=== PATIENT | female | born 1960 | race Caucasian/White ===

== ENCOUNTER 2020-07-04 07:55 | Outpatient (REF) | payer OTHER, SELFPAY ==
--- NOTE | ~2020-07-04 | MM_ITS ---
EXAMINATION: MM SCREENING DIGITAL BREAST TOMOSYNTHESIS, BILATERAL CLINICAL INFORMATION: Screening. Asymptomatic. The lifetime risk of breast cancer based on the Tyrer-Cuzick Model is 16%. COMPARISON: Mammography: 02/14/2019, 12/13/2017 05/29/2015 TECHNIQUE: Digital breast tomosynthesis is performed in both the craniocaudal and mediolateral oblique views along with computer-aided detection (CAD). Synthesized 2D images are generated from the tomosynthesis. FINDINGS: The breasts are heterogeneously dense, which may obscure small masses (ACR BI-RADS breast composition Category c). There are no significant masses, abnormal calcifications, or other abnormalities. The axillary and skin contours are unremarkable. MM/MM tomosynthesis screening BI IMPRESSION: No mammographic evidence of malignancy. ASSESSMENT: BI-RADS 1: Negative RECOMMENDATION: Routine annual mammography screening. This patient's information was entered into a reminder system with a target due date for their next mammogram.
== END 2020-07-04 07:56 | disposition home or self-care (01) ==
LOC: HO.MAMMO 07:55
PROVIDERS: PCP Internal Medicine; Visit Provider Internal Medicine
DX: Z12.31 Encounter for screening mammogram for malignant neoplasm of breast (principal)
CPT/HCPCS: 77063; 77067

== ENCOUNTER 2021-08-15 08:45 | Outpatient (REF) | payer OTHER, SELFPAY ==
--- NOTE | ~2021-08-15 | MM_ITS ---
EXAMINATION: MM SCREENING DIGITAL BREAST TOMOSYNTHESIS, BILATERAL CLINICAL INFORMATION: Screening. Asymptomatic. The lifetime risk of breast cancer based on the Tyrer-Cuzick Model is 13%. COMPARISON: Mammography: 07/04/2020, 02/14/2019, 12/13/2017, 05/29/2015 TECHNIQUE: Digital breast tomosynthesis is performed in both the craniocaudal and mediolateral oblique views along with computer-aided detection (CAD). Synthesized 2D images are generated from the tomosynthesis. FINDINGS: The breasts are heterogeneously dense, which may obscure small masses (ACR BI-RADS breast composition Category c). There are no significant masses, abnormal calcifications, or other abnormalities. Breast tissue composition borders on average fibroglandular. Parenchymal pattern is similar to prior studies and there is no developing density. No interval architectural abnormality. No significant change. MM/MM tomosynthesis screening BI IMPRESSION: No mammographic evidence of malignancy. ASSESSMENT: BI-RADS 2: Benign RECOMMENDATION: Routine annual mammography screening. This patient's information was entered into a reminder system with a target due date for their next mammogram.
== END 2021-08-15 08:46 | disposition home or self-care (01) ==
LOC: HO.MAMMO 08:45
PROVIDERS: PCP Internal Medicine; Visit Provider Internal Medicine
DX: Z12.31 Encounter for screening mammogram for malignant neoplasm of breast (principal)
CPT/HCPCS: 77063; 77067

== ENCOUNTER 2023-01-15 07:14 | Outpatient (REF) | payer OTHER, SELFPAY | END 2023-01-15 07:15 | disposition home or self-care (01) | LOC: HO.MAMMO 07:14 | PROVIDERS: PCP Internal Medicine; Visit Provider Internal Medicine | DX: Z12.31 Encounter for screening mammogram for malignant neoplasm of breast (principal) | CPT/HCPCS: 77063; 77067 ==

== ENCOUNTER → 2023-01-15 07:30 | Outpatient (BNV) | payer OTHER, SELFPAY | PROVIDERS: PCP Internal Medicine; Visit Provider Radiology Diagnostic Radiology | DX: Z12.31 Encounter for screening mammogram for malignant neoplasm of breast (principal) | CPT/HCPCS: 77063; 77067 ==

== ENCOUNTER 2024-04-06 08:56 | Outpatient (REF) | payer OTHER, SELFPAY ==
--- NOTE | ~2024-04-06 | MM_ITS ---
EXAMINATION: MM SCREENING DIGITAL BREAST TOMOSYNTHESIS, BILATERAL CLINICAL INFORMATION: Screening. Asymptomatic. COMPARISON: Mammography: Comparison is made with available priors TECHNIQUE: Digital breast mammography with tomosynthesis is performed in both the craniocaudal and mediolateral oblique views along with computer-aided detection (CAD). FINDINGS: The breasts are heterogeneously dense, which may obscure small masses (ACR BI-RADS breast composition Category c). There are no significant masses, abnormal calcifications, or other abnormalities. MM/MM tomosynthesis screening BI IMPRESSION: No mammographic evidence of malignancy. ASSESSMENT: BI-RADS BI-RADS 1 - Negative RECOMMENDATION: Routine annual mammography screening. 1 year F/U This examination should not preclude the clinical evaluation of a suspicious palpable abnormality. This patient's information was entered into a reminder system with a target due date for their next mammogram. Electronically signed by: Martha Guo DO 04/17/2024 09:11 AM DUYEN
== END 2024-04-06 08:57 | disposition home or self-care (01) ==
LOC: HO.MAMMO 08:56
PROVIDERS: PCP Internal Medicine; Visit Provider Internal Medicine
DX: Z12.31 Encounter for screening mammogram for malignant neoplasm of breast (principal)
CPT/HCPCS: 77063; 77067

== ENCOUNTER → 2024-04-06 09:00 | Outpatient (BNV) | payer OTHER, SELFPAY | PROVIDERS: PCP Internal Medicine; Visit Provider Internal Medicine | DX: Z12.31 Encounter for screening mammogram for malignant neoplasm of breast (principal) | CPT/HCPCS: 77063; 77067 ==

== ENCOUNTER 2025-04-19 08:19 | Outpatient (REF) | payer OTHER, SELFPAY ==
--- NOTE | ~2025-04-19 | MM_ITS ---
EXAMINATION: MM SCREENING DIGITAL BREAST TOMOSYNTHESIS, BILATERAL CLINICAL INFORMATION: Screening. Asymptomatic. COMPARISON: Mammography: Comparison is made with available priors TECHNIQUE: Digital breast mammography with tomosynthesis is performed in both the craniocaudal and mediolateral oblique views along with computer-aided detection (CAD). FINDINGS: The breasts are heterogeneously dense, which may obscure small masses. There are no significant masses, abnormal calcifications, or other abnormalities. MM/MM tomosynthesis screening BI IMPRESSION: No mammographic evidence of malignancy. ASSESSMENT: BI-RADS Category 1: Negative RECOMMENDATION: Routine annual mammography screening. 1 year F/U This examination should not preclude the clinical evaluation of a suspicious palpable abnormality. This patient's information was entered into a reminder system with a target due date for their next mammogram. Electronically signed by: Martha Guo DO 04/20/2025 06:03 PM DUYEN
--- OUTSIDE RECORDS SUMMARY | 2025-04-19 08:39 | XMS_ITS | Clinical Summary ---
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 21 tablet 01/18/2025 Active omeprazole (PriLOSEC) [address] capsule TAKE ONE CAPSULE BY MOUTH EVERY DAY. DO NOT CRUSH, CHEW, OR SPLIT 90 capsule 1 02/07/2025 Active simvastatin (ZOCOR) 40 mg tablet TAKE ONE TABLET BY MOUTH ONCE DAILY AT BEDTIME 90 tablet 1 02/07/2025 Active hydrOXYzine HCL (ATARAX) 25 mg tablet TAKE ONE TABLET BY MOUTH EVERY 8 HOURS NEEDED FOR ANXIETY 90 tablet 1 02/15/2025 Active Active Problems Problem Noted Date Diagnosed Date Prediabetes 06/02/2023 Anxiety 10/14/2017 Depression 10/14/2017 Hyperlipidemia 10/14/2017 Subclinical hypothyroidism 10/14/2017 Hyperplastic colon polyp 03/26/2011 Encounters Date Type Department Care Team Description 01/18/2025 11:15 AM EDT Office Visit Internal Medicine - [address] [address] Edson Wagner MD Sciatica of right side (Primary Dx) from Last 3 Months Immunizations Immunization Administration Dates Next Due Influenza trivalent, 0.5mL, preservative free (Fluarix; FluLaval; Fluzone) ages 6mo and older (Afluria) 3 years and older 03/13/2013,02/16/2011 Influenza trivalent, with pr eservative (Fluzone; Afluria) 6mo and older 02/19/2012 Moderna SARS-CoV-2 COVID-19, mRNA, LNP-S, preservative free 07/18/2020 Pneumococcal conjugate 20 va lent (Prevnar 20, PCV 20) 2mo and older 01/02/2025 Tdap Tetanus diptheria acell ular pertussis (Boostrix; Adacel) 7yo and older 09/09/2022 Zoster recombinant (Shingrix) 19yo and older ,03/31/2020 Surgical History Surgery Date Site/Laterality Comments CHOLECYSTECTOMY PROCEDURE: HISTORICAL CHOLECYSTECTOMY APPENDECTOMY PROCEDURE: HISTORICAL APPENDECTOMY Medical History Medical History Date Comments Anxiety 10/14/2017 DX:Anxiety Depression 10/14/2017 DX:Depression Hyperlipidemia 10/14/2017 DX:Hyperlipidemi a Hyperplastic colon polyp 03/26/2011 DX:Hype rplastic colon polyp Subclinical hypothyroidism 10/14/2017 DX:Rick bclinical hypothyroidism Family History Medical History Relation Name Comments Diabetes Brother hypercholestero lemia Coronary artery disease Father Heart attack Maternal Grandfather Ovarian cancer Maternal Grandmother Dementia Mother Hyperlipidemia Mother Heart attack Paternal Grandfather Stroke Paternal Grandmother Hyperlipidemia Sister Relation Name Status Comments Brother Alive Father Maternal Grandfather Maternal Grandmother Mother Alive Paternal Grandfather Paternal Grandmother Sister Alive Social History Tobacco Use Types Packs/Day Years Used Date Smoking Tobacco: Former Cigarettes 0.3 8 0 05/17/1977 - 05/17/1985 Smokeless Tobacco: Never Tobacco Cessation:Counseling Given: Not Answered Alcohol Use Standard Drinks/Week Comments Yes 2 (1 standard drink = 0.6 oz pur e alcohol) Housing Instability Answer Date Recorde d Are you worried that in the next 2 months you may not have stable housing? No 01/01/2025 Food Access & Nutrition Answer Date Rec orded Do you have access to a vari ety of food including fruits and vegetables? Yes 01/01/2025 Access to Healthcare Answer Date Record ed Within the last 3 months, ho w many times did you visit the emergency department for your medical care? 0 01/01/2025 Health Literacy Answer Date Recorded How often do you need to hav e someone help you when you read instructions, pamphlets, or other written material from your doctor or pharmacy? Never 01/01/2025 Caregiver: How often do you need to have someone help you when you read instructions, pamphlets, or other written material from your doctor or pharmacy? Not on file 01/01/2025 Financial Risk Answer Date Recorded How hard is it for you to pa y for the very basics like food, housing, medical care, and air conditioning / heating? Not very hard 01/01/2025 Transportation Answer Date Recorded Has the lack of transportati on kept you from meetings, work, or from getting things needed for daily living? No Has the lack of transportati on kept you from medical appointments or from getting medications? No 01/01/2025 Social Isolation Answer Date Recorded How often do you feel lonely or isolated from th ose around you? Never 01/01/2025 Food Risk Answer Date Recorded Within the past 12 months we worried whether our food would run out before we got money to buy more. Never true 01/01/2025 Within the past 12 months th e food we bought just didn't last and we didn't have money to get more. Never true 01/01/2025 Dependent Care Answer Date Recorded Do you need help finding or paying for care for your loved ones. For example, exceptional children teacher or elderly care for an older adult? Patient declined 01/01/2025 Education Answer Date Recorded Do you think completing more education or training, like finishing a GED, going to college, or learning a trade, would be helpful for you? N/A 01/01/2025 Employment and Income Answer Date Recor ded During the last four weeks, have you been actively looking for work? No 01/01/2025 Living Situation Answer Date Recorded What is your living situation? Unrecognized valu e 01/01/2025 Comments No Sex and Gender Information Value Date Recorded Sex Assigned at Not on file Legal Sex Female 2:21 AM EST Gender Identity Not on file Sexual Orientation Not on file Obstetrics History Last Filed Vital Signs Vital Sign Reading Time Taken Comments Blood Pressure 141/72 01/18/2025 10:59 AM EDT Pulse 93 01/18/2025 10:59 AM EDT Temperature - - Respiratory Rate - - Oxygen Saturation - - Inhaled Oxygen Concentration - - Weight 86.2 kg (190 lb 1.6 oz) 01/18/2025 10:59 AM EDT Height 172.7 cm (5' 8 ) 01/18/2025 10:59 AM EDT Body Mass Index 28.9 01/18/2025 10:59 AM EDT Plan of Treatment Upcoming Encounters Date Type Department Care Team (Late st Contact Info) Description 07/05/2025 9:30 AM EST Office Visit Internal Medicine - [address] [phone] Edson Wagner MD [address] [place] [id number] 01/04/2026 8:00 AM EDT Office Visit Internal Medicine - [address] [place] [phone] Edson Wagner MD [address] [place] [address] Health Maintenance Due Date Last Done Comments Colorectal Cancer Screening: Colonoscopy 12/09/2021 12/09/2016 HIV Screening 04/25/2022 Cervical Cancer Screening: Pap Smear 05/09/2024 05/09/2021 COVID-19 Vaccine ( season) 2025 05/03/2021, 07/18/2020, 06/25/2020 Influenza Vaccine (#1) 2025 , 02/14/2019, 04/28/2014, Additional history exists Social Influencers of Health Screening 01/01/2026 01/01/2025 Breast Cancer Screening 04/17/2026 04/17/2024 Cholesterol Screening (Lipid Panel) 12/28/2028 12/29/2023, 12/29/2023 DTaP,Tdap,and Td Vaccines (2 - Td or Tdap) 09/09/2032 09/09/2022 RSV Immunization Adult Patients (1 - 1-dose 75+ series) 2036 Zoster Vaccines Completed 08/10/2020, 03/31/2020 Hepatitis C Screening Completed 12/19/2020 Depression Screening Completed 01/01/2025 Pneumococcal Vaccine: 50+ Years Completed 01/02/2025, 04/28/2014 HIB Vaccines Aged Out No longer eligi ble based on patient's age to complete this topic HPV Vaccines Aged Out No longer eligi ble based on patient's age to complete this topic Hepatitis A Vaccines Aged Out No long er eligible based on patient's age to complete this topic Hepatitis B Vaccines Aged Out No long er eligible based on patient's age to complete this topic IPV Vaccines Aged Out No longer eligi ble based on patient's age to complete this topic MMR Vaccines Aged Out No longer eligi ble based on patient's age to complete this topic Meningococcal ACWY Vaccine Aged Out N o longer eligible based on patient's age to complete this topic Meningococcal B Vaccine Aged Out No l onger eligible based on patient's age to complete this topic RSV Immunization Patients Under 20 months Aged Out No longer eligible based on patient's age to complete this topic Varicella Vaccines Aged Out No longer eligible based on patient's age to complete this topic Procedures Procedure Name Priority Date/Time Associated Diagnosis Comments EXTERNAL MAMMOGRAM REPORT 04/17/2024 LIPID PANEL Routine 12/29/2023 PAP SMEAR Routine 05/09/2021 HEPATITIS C SCREENING Routine 12/19/2020 COLONOSCOPY Routine 12/09/2016 from Last 3 Months or Most Recently Relevant to Health Maintenance Results * External Mammogram Report (04/17/2024) Anatomical Region Laterality Modality [facility] Final Result * Lipid panel (12/29/2023) LDL/HDL Ratio 3 Triglycerides 145 mg/dL Cholesterol 189 mg/dL HDL 60 mg/dL LDL Cholesterol 100 mg/dL Blood Venous blood specimen / Unknown [facility] Provider LAB BLOOD ORDERABLES Arabella l Result * Pap Smear (05/09/2021) Pathologist [facility] Pap smear no interpretation , abstracted [facility] Provider HEALTH MAINTENANCE Final Result * Hepatitis C Screening (12/19/2020) Pathologist [facility] Hepatitis C Screening negative [facility] Provider HEALTH MAINTENANCE Final Result * Colonoscopy (12/09/2016) Pathologist [facility] Colonoscopy completed Anatomical Region Laterality Modality Other [facility] Provider HEALTH MAINTENANCE Final Result from Last 3 Months or Most Recently Relevant to Health Maintenance Insurance [employer] [id number] Care Teams Dairy Cattle Farmer Relationship Specialty Start Date End Date Edson Wagner MD [address] [place] [id number] PCP - General Internal Medicine 03/14/21
--- OUTSIDE RECORDS SUMMARY | 2025-04-19 08:39 | XMS_ITS | Clinical Summary ---
Author Organization [facility] Address [address] [place] [id number] Phone Care Team Providers Care Equipment Superintendent Name Role Phone Sylvie Walters MD Primary Care Provider [phone] Allergies No known active allergies Medications simvastatin (ZOCOR) 20 MG tablet 10/19/2018 Active citalopram (CELEXA) 20 MG tablet 10/17/2018 Active Family History Medical History Relation Comments Diabetes type II Brother Obesity Brother Colon polyps Father Coronary artery disease Father bypass s urgery and of post op intestinal complications 2012 age 85 Hyperlipidemia Father Ovarian cancer Maternal Grandmother Arthritis Mother Dementia Mother Hypertension Mother Breast cancer Paternal Aunt Stroke Paternal Grandmother No Known Problems Sister Retinoblastoma Son as child - bilat . Did well. Relation Status Comments Brother Alive Father Maternal Grandfather Maternal Grandmother Mother Alive Paternal Aunt Paternal Grandfather Paternal Grandmother Sister Alive Son Alive Social History Tobacco Use Types Packs/Day Years Used Date Smoking Tobacco: Former Cigarettes Smokeless Tobacco: Never Alcohol Use Standard Drinks/Week Comments Yes 6 (1 standard drink = 0.6 oz pur e alcohol) weekly Education Answer Date Recorded Are you interested in more education? Not on lavon e 09/10/2022 Are you concerned about learning? Not on file 09/10/2022 No 09/10/2022 No 09/10/2022 Digital Access Answer Date Recorded No 10/12/2022 No 10/12/2022 No 10/12/2022 Reliable internet access at home? Not on file 10/12/2022 Device with a working camera? 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 Not on file Not on file Last Filed Vital Signs Vital Sign Reading Time Taken Comments Blood Pressure 116/80 11/09/2018 8:31 AM EDT Pulse - - Temperature - - Respiratory Rate - - Oxygen Saturation - - Inhaled Oxygen Concentration - - Weight 84.4 kg (186 lb) 11/09/2018 8:31 AM EDT Height 172.7 cm (5' 8 ) 11/09/2018 8:31 AM EDT Body Mass Index 28.28 11/09/2018 8:31 AM EDT Plan of Treatment Health Maintenance Due Date Last Done Comments Adult Td,Tdap Booster 1961 LIPID PANEL 1961 DEPRESSION SCREENING 1973 SMOKING Hx and SMOKELESS TOBACCO SCREENING 1974 HEPATITIS C SCREENING 09/21/1979 HIV ONE-TIME SCREENING (18-6 5 YEARS) 09/21/1979 MAMMOGRAM 2001 COLOGUARD 2006 COLONOSCOPY 2006 COLORECTAL CANCER SCREENING 2006 FIT TEST 2006 FOBT 2006 SIGMOIDOSCOPY 2006 VIRTUAL COLONOSCOPY 2006 PNEUMOCOCCAL VACCINES (50+ years) (2 of 2 - PCV) 04/28/2015 04/28/2014 PAP SMEAR 02/01/2020 01/31/2015, 01/31/2015 INFLUENZA VACCINE (#1) 2024 04/28/2014 COVID-19 VACCINE (2 - 2024-2 6 season) 2025 06/25/2020 RSV VACCINE (1 - 1-dose 75+ series) 2036 ZOSTER VACCINES Completed 08/10/2020, 03/31/2020 HEPATITIS A VACCINES Aged Out No long er eligible based on patient's age to complete this topic HIB VACCINES Aged Out No longer eligi ble based on patient's age to complete this topic MENINGOCOCCAL VACCINES (ACWY) Aged Out No longer eligible based on patient's age to complete this topic MENINGOCOCCAL VACCINES (B) Aged Out N o longer eligible based on patient's age to complete this topic Medical Devices Not on file Procedures Procedure Name Priority Date/Time Associated Diagnosis Comments PAP SMEAR FOR RESULT ENTRY ONLY Routine 01/31/2015 from Last 3 Months or Most Recently Relevant to Health Maintenance Results * PAP SMEAR FOR RESULT ENTRY ONLY (01/31/2015) HM Pap smear NIL HR HPV negative Historical Provider MD HEALTH MAINTENANCE Final Result from Last 3 Months or Most Recently Relevant to Health Maintenance Insurance [place] [address] [place] [id number] POS [employer] POS O POS O POS O POS O POS O POS O POS Care Teams Equipment Superintendent Relationship Specialty Start Date End Date Sylvie Walters MD [address] [place] [address] PCP - General 09/08/18 Additional Source Comments The information contained in this document represents components of the legal health record. It is not the complete legal health record.[facility]
== END 2025-04-19 08:20 | disposition home or self-care (01) ==
LOC: HO.MAMMO 08:19
PROVIDERS: PCP Internal Medicine; Visit Provider Internal Medicine
DX: Z12.31 Encounter for screening mammogram for malignant neoplasm of breast (principal)
CPT/HCPCS: 77063; 77067

== ENCOUNTER → 2025-04-19 08:30 | Outpatient (BNV) | payer OTHER, SELFPAY | PROVIDERS: PCP Internal Medicine; Visit Provider Internal Medicine | DX: Z12.31 Encounter for screening mammogram for malignant neoplasm of breast (principal) | CPT/HCPCS: 77063; 77067 ==